=== PATIENT | male | born 1970 | race Caucasian/White ===

== ENCOUNTER 2019-06-24 04:39 | Emergency (ER) | payer BC, MEDICAID ==
[2019-06-24] MEDS ORDERED: Doxycycline 100 MG Cap PO ONE (05:09)
[2019-06-24] MEDS ORDERED: Bacitracin Oint 1 GM U/D Packet TOP ONE (05:10)
[2019-06-24] MEDS ORDERED: Ibuprofen 600 MG Tab PO ONE (05:10)
--- NOTE | 2019-06-24 05:22 | EDM.PDOC ---
ED HPI GENERAL MEDICAL PROBLEM - General Chief Complaint: Upper Extremity Injury/Pain Stated Complaint: SWELLED FINGER Time Seen by Provider: 06/24/19 05:05 Source of Information: Reports: Patient, RN Notes Reviewed History Limitations: Reports: No Limitations - History of Present Illness INITIAL COMMENTS - FREE TEXT/NARRATIVE: ED with c/o pain to Right middle finger tip, swollen red. Has been sticking needle in it at home and getting puss out. No hx of MRSA. Not diabetic, No fever. Right Finger-Middle Pain Score (Numeric/FACES): 7 - Related Data Allergies Allergy/AdvReac Type Severity Reaction Status Date / Time Penicillins Allergy Numbness Verified 06/24/19 04:47 Home Meds: Home Meds . [Unable to Verify Home Med List] 06/24/19 [History] Past Medical History Cardiovascular History: Reports: High Cholesterol, Hypertension Gastrointestinal History: Reports: GERD Psychiatric History: Reports: ADHD, Anxiety, Depression Endocrine/Metabolic History: Reports: Diabetes, Type II Social & Family History - Family History Family Medical History: Noncontributory - Tobacco Use Smoking Status *Q: Unknown Ever Smoked Second Hand Smoke Exposure: No - Caffeine Use Caffeine Use: Reports: Coffee, Soda - Recreational Drug Use Recreational Drug Use: No Review of Systems - Review of Systems Review Of Systems: Comprehensive ROS is negative, except as noted in HPI. ED EXAM, GENERAL - Physical Exam Exam: See Below Exam Limited By: No Limitations General Appearance: Alert, Mild Distress Eye Exam: Bilateral Eye: EOMI Ears: Hearing Grossly Normal Nose: Normal Inspection Throat/Mouth: Normal Inspection Head: Atraumatic, Normocephalic Neck: Normal Inspection Respiratory/Chest: No Respiratory Distress, Lungs Clear, Normal Breath Sounds Cardiovascular: Normal Peripheral Pulses, Regular Rate, Rhythm Extremities: Other (distal right 3finger swollen red, bruising medial nail , scant purlulent drainage mid medial nail with culture) Neurological: Alert, Oriented Psychiatric: Normal Affect Skin Exam: Warm, Dry, Ecchymosis, Erythema Course - Vital Signs Last Recorded V/S: Last Vital Signs Temp 98.1 F 06/24/19 04:48 Pulse 89 06/24/19 04:48 Resp 16 06/24/19 04:48 BP 168/99 H 06/24/19 04:48 Pulse Ox 97 06/24/19 04:48 Departure - Departure Time of Disposition: 05:23 Disposition: Home, Self-Care 01 Condition: Good Clinical Impression: Infected finger - Discharge Information *PRESCRIPTION DRUG MONITORING PROGRAM REVIEWED*: Not Applicable *COPY OF PRESCRIPTION DRUG MONITORING REPORT IN PATIENT LUISA: Not Applicable Instructions: Stacey, [id number] Additional Instructions: clindamycin 300mg 3 times daily for 7 days soak finger warm soapy water 3 times daily clinic recheck Tuesday alternate tylenol and ibuprofen every 4 hours as needed for discomfort Sepsis Event Note - Evaluation Sepsis Screening Result: No Definite Risk - Focused Exam Vital Signs: Vital Signs Temp Pulse Resp BP Pulse Ox 06/24/19 04:48 98.1 F 89 16 168/99 H 97 Date Exam was Performed: 06/24/19 Time Exam was Performed: 05:05
== END 2019-06-24 05:33 | disposition home or self-care (01) ==
LOC: DL.ED 04:39
DX: L08.9 Local infection of the skin and subcutaneous tissue, unspecified (principal); I10 Essential (primary) hypertension; Z88.0 Allergy status to penicillin
CPT/HCPCS: 87070; 99283; A9270